=== PATIENT | female | born 1945 ===

== ENCOUNTER 2023-10-24 04:14 | Day surgery (SDC) | payer OTHER ==
[2023-10-22 10:02] VITALS: BMI 29.4
[2023-10-24 08:38] VITALS: TEMP 98.4
[2023-10-24 09:00] VITALS: PULSE 65
[2023-10-24 10:42] VITALS: BP 104/73; RESP 19
== END 2023-10-24 09:20 | disposition home or self-care (01) ==
LOC: JASU-ENDO 04:14
PROVIDERS: ATTEND Student in an Organized Health Care Education/Training Program
PROC: 0DJD8ZZ Inspection of Lower Intestinal Tract, Via Natural or Artificial Opening Endoscopic (ICD-10-PCS; principal; 2023-10-24 08:00)
DX: Z12.11 Encounter for screening for malignant neoplasm of colon (principal); K59.89 Other specified functional intestinal disorders